=== PATIENT | female | born 1980 | race African-American/Black ===

== ENCOUNTER → 2022-07-14 | Day surgery (SDC) | payer OTHER | END | disposition home or self-care (01) | LOC: JRADUS-SUR 08:25 | PROVIDERS: ATTEND Family Medicine | PROC: BU18YZZ Fluoroscopy of Uterus and Fallopian Tubes using Other Contrast (ICD-10-PCS; principal; 2022-07-14) | DX: N97.9 Female infertility, unspecified (principal) | CPT/HCPCS: 58340; 74740-TC-FY; 76000-TC-FY; 84703 ==

== ENCOUNTER 2023-09-21 12:05 | Emergency (ER) | payer OTHER ==
[2023-09-21 12:18] VITALS: BP 111/76; PULSE 74; RESP 18; TEMP 97.8; BMI 26.4
[2023-09-21] MEDS ORDERED: IBUPROFEN 600 MG TABLET (FP) PO ONE (13:27)
[2023-09-21] MEDS ORDERED: ACETAMINOPHEN 500 MG TABLET (FP) ONE (13:27)
[2023-09-21] MEDS: IBUPROFEN 600 MG TABLET (FP) PO ONE (13:36)
[2023-09-21] MEDS: ACETAMINOPHEN 500 MG TABLET (FP) PO ONE (13:36)
[2023-09-21] MEDS ORDERED: diazePAM 5 MG TABLET ONE (14:08)
[2023-09-21] MEDS ORDERED: LIDOCAINE 4% PATCH TP ONE (14:08)
[2023-09-21] MEDS: LIDOCAINE 4% PATCH TP ONE (14:10)
[2023-09-21] MEDS: diazePAM 5 MG TABLET PO ONE (14:11)
[2023-09-21] MEDS ORDERED: LIDOCAINE PATCH REMOVAL MC SCH (22:00)
== END 2023-09-21 16:24 | disposition home or self-care (01) ==
LOC: JERFT 12:05
DX: M25.511 Pain in right shoulder (principal); M62.838 Other muscle spasm; W19.XXXA Unspecified fall, initial encounter
CPT/HCPCS: 71250-TC; 72125-TC; 72128-TC; 73030-TC-RT-FY; 73060-TC-RT-FY; 73070-TC-RT-FY; 99284-25